=== PATIENT | female | born 2000 | race Caucasian/White ===

== ENCOUNTER 2022-06-13 21:07 | Emergency (ER) | payer OTHER, BC | END 2022-06-13 22:40 | disposition home or self-care (01) | LOC: VM.ED 21:07 | DX: S82.64XA Nondisplaced fracture of lateral malleolus of right fibula, initial encounter for closed fracture (principal); Z3A.29 29 weeks gestation of pregnancy; X50.1XXA Overexertion from prolonged static or awkward postures, initial encounter | CPT/HCPCS: 73610-RT; 99283 ==